=== PATIENT | male | born 1995 | race Asian ===

== ENCOUNTER 2023-07-20 02:51 | Emergency (ER) | payer BC ==
[2023-07-20] MEDS ORDERED: Lidocaine 2% Viscous Solution 15 ML UD PO ONE (06:29)
[2023-07-20] MEDS ORDERED: Aluminum Hydroxide/Magnesium Hydroxide/Simethicone XS Susp 30 ML Cup PO ONE (06:29)
[2023-07-20 06:57] LABS: BASOPHILS PERCENT AUTO 0.5 % (0.0-1.5); EOSINOPHILS ABSOLUTE AUTO 0.5 K/uL (0.0-0.7); EOSINOPHILS PERCENT AUTO 6.1 % (0.0-7.0); HEMATOCRIT 48.6 % (38.0-50.0); HEMOGLOBIN 16.9 g/dL (13.0-17.0); LYMPHOCYTES ABSOLUTE AUTO 2.1 K/uL (0.6-2.4); LYMPHOCYTES PERCENT AUTO 24.2 % (16.0-40.0); MEAN CORPUSCULAR HEMOGLOBIN 29.2 pg (27.0-32.0); MEAN CORPUSCULAR HGB CONC 34.8 g/dL (31.0-37.0); MEAN CORPUSCULAR VOLUME 84.1 fL (80.0-98.0); MONOCYTES ABSOLUTE AUTO 0.8 K/uL (0.0-0.8); MONOCYTES PERCENT AUTO 9.4 % (0.0-15.0); NEUTROPHILS ABSOLUTE AUTO 5.2 K/uL (1.4-5.7); NEUTROPHILS PERCENT AUTO 59.8 % (48.0-80.0); NRBC ABSOLUTE 0 K/uL; PLATELET COUNT,PLT 204 K/uL (150-400); RED BLOOD CELL COUNT 5.78 M/uL (4.50-5.90); WHITE BLOOD CELL COUNT,WBC 8.64 K/uL (4.0-11.0)
[2023-07-20 06:59] LABS: A/G RATIO 1.1 (0.9-1.6); BILIRUBIN TOTAL 0.4 mg/dL (0.2-1.0); CALCIUM 8.7 mg/dL (8.5-10.1); EST CRCL DRUG DOSING (CG) 95.67 mL/min; POTASSIUM,K 3.5 mmol/L (3.5-5.1); PROTEIN TOTAL,TP 7.7 g/dL (6.4-8.2)
[2023-07-20 07:37] LABS: APPEARANCE,URINE CLEAR; BILIRUBIN,URINE NEGATIVE (NEGATIVE); COLOR,URINE YELLOW; GLUCOSE,URINE NEGATIVE (NEGATIVE); KETONES,URINE NEGATIVE (NEGATIVE); LEUKOCYTE ESTERASE,URINE NEGATIVE (NEGATIVE); NITRITE,URINE NEGATIVE (NEGATIVE); OCCULT BLOOD,URINE NEGATIVE (NEGATIVE); PROTEIN,URINE NEGATIVE (NEGATIVE); UROBILINOGEN,URINE 0.2 EU/dL (<2.0)
== END 2023-07-20 05:00 | disposition home or self-care (01) ==
LOC: MW.ED 02:51
DX: R10.13 Epigastric pain (principal)
CPT/HCPCS: 36415; 80053; 81003; 83690; 85025; 99284; A9270

== ENCOUNTER 2023-07-24 04:02 | Emergency (ER) | payer BC ==
[2023-07-24] MEDS ORDERED: Sodium Chloride 0.9% 10 ML Syringe FLUSH PRN (04:18)
[2023-07-24] MEDS ORDERED: Sodium Chloride 0.9% 2.5 ML Syringe FLUSH PRN (04:18)
[2023-07-24] MEDS ORDERED: Pantoprazole 40 MG in Sodium Chloride 0.9% 10 ML IVPUSH ONE (04:18)
[2023-07-24] MEDS ORDERED: Sodium Chloride 0.9% 1,000 ML IV ONE (04:18)
[2023-07-24] MEDS ORDERED: Famotidine 20 MG Tab PO ONE (04:19)
[2023-07-24 04:26] LABS: BASOPHILS ABSOLUTE AUTO 0.1 K/uL (0.0-0.1); BASOPHILS PERCENT AUTO 0.6 % (0.0-1.5); EOSINOPHILS ABSOLUTE AUTO 0.5 K/uL (0.0-0.7); HEMATOCRIT 47.7 % (38.0-50.0); HEMOGLOBIN 16.8 g/dL (13.0-17.0); LYMPHOCYTES ABSOLUTE AUTO 2.1 K/uL (0.6-2.4); LYMPHOCYTES PERCENT AUTO 24.9 % (16.0-40.0); MEAN CORPUSCULAR HEMOGLOBIN 29.4 pg (27.0-32.0); MEAN CORPUSCULAR HGB CONC 35.2 g/dL (31.0-37.0); MEAN CORPUSCULAR VOLUME 83.4 fL (80.0-98.0); MONOCYTES ABSOLUTE AUTO 0.8 K/uL (0.0-0.8); MONOCYTES PERCENT AUTO 8.9 % (0.0-15.0); NEUTROPHILS PERCENT AUTO 59.6 % (48.0-80.0); NRBC ABSOLUTE 0 K/uL; PLATELET COUNT,PLT 203 K/uL (150-400); RED BLOOD CELL COUNT 5.72 M/uL (4.50-5.90); WHITE BLOOD CELL COUNT,WBC 8.44 K/uL (4.0-11.0)
[2023-07-24 04:49] LABS: BILIRUBIN TOTAL 0.4 mg/dL (0.2-1.0); CALCIUM 8.7 mg/dL (8.5-10.1); CARBON DIOXIDE,CO2 28.6 mmol/L (21.0-32.0); CREATININE 1.1 mg/dL (0.8-1.3); EST CRCL DRUG DOSING (CG) 86.97 mL/min; POTASSIUM,K 3.7 mmol/L (3.5-5.1)
[2023-07-24] MEDS ORDERED: Iopamidol 755 MG/ML 500 ML Multipack Bottle IVPUSH ONE (05:06)
[2023-07-24] MEDS ORDERED: Lidocaine 2% Viscous Solution 15 ML UD PO ONE (06:16)
== END 2023-07-24 07:51 | disposition home or self-care (01) ==
LOC: MW.ED 04:02
DX: R10.13 Epigastric pain (principal)
CPT/HCPCS: 36415; 74177; 80053; 83690; 85025; 96361; 96374; 99284; A9270; C9113; J3490; J7030; Q9967

== ENCOUNTER 2024-04-25 08:21 | Day surgery (SDC) | payer BC ==
[~2024-04-25 08:21] MED LIST: Albuterol 0.083% 2.5 MG/3 ML Neb Soln NEB PRN; HYDROmorphone 1 MG/ML Syringe IVPUSH PRN; Metoclopramide 10 MG/2 ML SDV IVPUSH PRN; Midazolam 1 MG/ML 2 ML SDV ONE; Morphine 2 MG/ML SYRINGE IVPUSH PRN; Naloxone 0.4 MG/ML SDV IVPUSH PRN; Ondansetron 4 MG/2 ML SDV IVPUSH PRN; ceFAZolin 2 GM in Sodium Chloride 0.9% 50 ML IV ONE; droPERidol 5 MG/2 ML SDV IVPUSH PRN; fentaNYL 100 MCG/2 ML SDV ONE; fentaNYL 50 MCG/ML SDV IVPUSH PRN
[2024-04-25] MEDS ORDERED: Lidocaine 1% 20 ML MDV ONE (08:34)
[2024-04-25] MEDS ORDERED: Bupivacaine 0.5% 30 ML SDV ONE (08:34)
[2024-04-25] MEDS ORDERED: Propofol 200 MG/20 ML SDV ONE ×2 (08:36→11:10)
[2024-04-25] MEDS ORDERED: dexmedeTOMIDine HCl 200 MCG/2 ML SDV ONE (08:36)
[2024-04-25] MEDS ORDERED: Water For Injection, Sterile 20 ML ONE (08:36)
[2024-04-25] MEDS: Lactated Ringers 1,000 ML IV SCH (08:54)
[2024-04-25] MEDS ORDERED: Bupivacaine 0.5%/EPINEPHrine 1:200,000 30 ML SDV ONE (09:08)
[2024-04-25] MEDS ORDERED: ceFAZolin 2 GM Vial ONE (09:37)
[2024-04-25] MEDS ORDERED: Ondansetron 4 MG/2 ML SDV ONE (10:39)
[2024-04-25] MEDS ORDERED: Dexamethasone 4 MG/ML 5 ML MDV ONE (10:39)
[2024-04-25] MEDS ORDERED: fentaNYL 100 MCG/2 ML SDV ONE (10:54)
[2024-04-25] MEDS ORDERED: Ketorolac 30 MG/ML SDV ONE (11:36)
[2024-04-25] MEDS ORDERED: propofoL 50 ML ONE (11:44)
== END 2024-04-25 14:25 | disposition home or self-care (01) ==
LOC: MW.SDS 08:21
PROVIDERS: ATTEND Orthopaedic Surgery
DX: S83.511A Sprain of anterior cruciate ligament of right knee, initial encounter (principal); S83.241A Other tear of medial meniscus, current injury, right knee, initial encounter; S83.281A Other tear of lateral meniscus, current injury, right knee, initial encounter
CPT/HCPCS: 29881; 29888; 64447; C1713; J0131; J0665; J0690; J1100; J1885; J2250; J2405; J2704; J3010; J7120; J3490